=== PATIENT | female | born 1990 | race American Indian/Alaskan Native ===

== ENCOUNTER 2021-06-22 20:04 | Outpatient (CLI) | payer OTHER ==
[2021-06-22 21:07] VITALS: BP 126/85
[2021-06-22] MEDS ORDERED: LACTATED RINGERS 1,000 ML IV ONE (21:19)
[2021-06-22 22:03] LABS: Bacteria,Urine 1+ /HPF (Negative); Bilirubin,Urine NEG (Negative); Blood,Urine NEG (Negative); Color,Urine Straw (Yellow); Protein,Urine <15 mg/dL mg/dL (Negative)
== END 2021-06-22 22:40 | disposition home or self-care (01) ==
LOC: TRG 20:04 → APU 20:42 → TRG 22:40
PROVIDERS: ATTEND Obstetrics & Gynecology
DX: O26.893 Other specified pregnancy related conditions, third trimester (principal); R10.9 Unspecified abdominal pain; Z3A.35 35 weeks gestation of pregnancy
CPT/HCPCS: 59025; 81001; 96360; J7120